=== PATIENT | male | born 1995 | race Caucasian/White ===

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

== ENCOUNTER 2017-01-17 03:11 | Emergency (ER) | payer BC ==
[~2017-01-17] VITALS: Ht 185.4 cm; Wt 99.8 kg
[~2017-01-17 03:11] MED LIST: HYDR-3812 PO
[2017-01-17] MEDS ORDERED: AZITHROMYCIN 250 MG TAB (ZITHROMAX) PO STA (03:50)
[2017-01-17] MEDS ORDERED: DEXAMETHASONE 10 MG/ML (DECADRON) 1 ML VIAL ONE (03:50)
[2017-01-17] MEDS ORDERED: DEXAMETHASONE PF 10 MG/ML (DECADRON) VIAL IM STA (03:50)
[2017-01-17] MEDS ORDERED: KETOROLAC 60 MG/2 ML VIAL IM STA (03:50)
--- NOTE | 2017-01-17 03:59 | ED EENT ---
History of Present Illness General Chief Complaint: Ear Problems Stated Complaint: RT EAR PAIN Nursing Triage Note: PT C/O RIGHT EAR PAIN SINCE MIDNIGHT. PT STATES THE PAIN IS TRAVELING DOWN TO HIS NECK. NO OTHER COMPLAINTS AT THIS TIME. Source: patient Exam Limitations: no limitations History of Present Illness Time seen by provider: 03:35 Initial Comments Here with report of right ear pain for the last several hours. States that it is radiating to the right jaw. He did use ear drops and that has not helped. He took 2 extra strength Tylenol and that did not help. Does report upper respiratory infection type symptoms for the last 5 days including nasal congestion. Denies breathing problems or other concerns. Timing/Duration: abrupt Severity: moderate Location: ear (R) Prearrival Treatment: over the counter meds, prescription meds Associated Symptoms: No cough, No ear drainage, facial pain/swelling, No fever , nasal congestion/drainage, No sore throat, No voice change Allergies and Home Medications Allergies Coded Allergies: No Known Drug Allergies (Unverified , 09/29/16) Home Medications Hydrocodone/Acetaminophen 1 Each Tablet, 2 EACH PO Q6H PRN for PAIN, #15 Ref 0 Prescribed by: ELMER KHANNA on 09/29/16 2003 Review of Systems Constitutional: see HPI, No chills, No fever Eyes: No Symptoms Reported Ears: See HPI, Pain, Denies Bloody Discharge, Denies Clear Discharge Nose: see HPI, clear discharge Mouth: no symptoms reported Throat: no symptoms reported Respiratory: No cough, No short of breath Cardiovascular: no symptoms reported Gastrointestinal: no symptoms reported Past Mklpqbn-Zffjrz-Wnsbed Hx Patient Social History Alcohol Use: Denies Use Recreational Drug Use: No Smoking Status: Never a Smoker Type Used: Smokeless Tobacco 2nd Hand Smoke Exposure: No Recent Foreign Travel: No Contact w/Someone Who Travel: No Recent Infectious Disease Expo: No Recent Hopitalizations: No Ebola Symptoms: Denies Symptoms Listed Physical Abuse: No Sexual Abuse: No Immunizations Up To Date Tetanus Booster (TDap): Less than 5yrs PED Vaccines UTD: No Seasonal Allergies Seasonal Allergies: No Surgeries History of Surgeries: No Respiratory History of Respiratory Disorde: No Cardiovascular History of Cardiac Disorders: No Neurological History of Neurological Disord: No Genitourinary History of Genitourinary Disor: No Gastrointestinal History of Gastrointestinal Di: No Musculoskeletal History of Musculoskeletal Dis: No Endocrine History of Endocrine Disorders: No HEENT History of HEENT Disorders: No Cancer History of Cancer: No Psychosocial History of Psychiatric Problem: No Suicide Risk Score: 0 Integumentary History of Skin or Integumenta: No Blood Transfusions History of Blood Disorders: No Reviewed Nursing Assessment Reviewed/Agree w Nursing PMH: Yes Physical Exam Vital Signs Vital Sign - Last 12Hours 01/17/17 03:20 Temp 98.1 Pulse 56 Resp 20 B/P (MAP) 121/90 Pulse Ox 98 O2 Delivery Room Air General Appearance: WD/WN, no apparent distress Eyes: bilateral eye normal inspection, bilateral eye PERRL, bilateral eye EOMI Ears: right ear erythema, right ear swelling, right ear TM red, left ear auricle normal, left ear canal normal, left ear TM normal Nose: other (moderate nasal congestion with clear rhinorrhea) Mouth/Throat: No tonsillar exudate, tonsillar swelling, other (pharyngeal erythema noted) Neck: full range of motion, supple, lymphadenopathy (R), No lymphadenopathy (L) Cardiovascular: regular rate, rhythm, no murmur Respiratory: lungs clear, normal breath sounds Gastrointestinal: non tender, soft Neurologic/Psychiatric: alert, oriented x 3 Skin: normal color, warm/dry Progress/Results/Core Measures Results/Orders My Orders Orders - KEVIN PARKER MD Ketorolac Injection (Toradol Injection) (01/17/17 03:50) Decadron 10 Mg Im (01/17/17 03:50) Azithromycin Tablet (Zithromax Tablet) (01/17/17 03:50) Vital Signs/I&O Vital Sign - Last 12Hours 01/17/17 01/17/17 03:20 03:20 Temp 98.1 98.1 Pulse 56 56 Resp 20 B/P (MAP) 121/90 121/90 Pulse Ox 98 O2 Delivery Room Air Room Air Progress Note : Progress Note Seen and evaluated. Toradol 60 mg IM, Decadron 10 mg IM. Azithromycin 500 mg by mouth. Discharged home with return precautions. Patient verbalize understanding instructions and agreement with plan. Departure Impression Impression: Primary Impression: Right otitis externa Qualified Codes: H60.311 - Diffuse otitis externa, right ear Disposition: 01 HOME, SELF-CARE Condition: Stable Departure-Patient Inst. Decision time for Depature: 03:57 Referrals: [facility] (PCP/Family) Primary Care Physician Patient Instructions: Outer Ear Infection (DC) Add. Discharge Instructions: All discharge instructions reviewed with patient and/or family. Voiced understanding. You may take ibuprofen 800 mg every 8 hours as needed for pain. You may take Tylenol (acetaminophen) 1000 mg every 8 hours as needed for pain. Use the Ciprodex drops 4 drops to the right ear twice daily for 7 days. Take other medications as directed. Return for worse pain, fever, vomiting, weakness, breathing problems or other concerns as needed. Scripts Azithromycin (Azithromycin) 250 Mg Tablet 250 MG PO DAILY, #4 TAB 0 Refills Prov: KEVIN PARKER MD 01/17/17 KEVIN PARKER MD Jan 17, 2017 03:59
[2017-01-17] MEDS ORDERED: AZIT250T12 PO (04:01)
== END 2017-01-17 04:02 | disposition home or self-care (01) ==
LOC: EDUNIT# 03:11 → ER 03:15
DX: H60.91 Unspecified otitis externa, right ear (principal)
CPT/HCPCS: 96372; 99284

== ENCOUNTER 2020-04-19 05:34 | Outpatient (RCR) | payer BC ==
[~2020-04-19 05:34] MED LIST changes: +ACHD5005 PO; +AZIT250T12 PO; -HYDR-3812 PO
== END 2020-04-19 11:30 | disposition home or self-care (01) ==
LOC: PREOP 05:34
PROVIDERS: ATTEND Otolaryngology Otolaryngology/Facial Plastic Surgery
DX: Z01.812 Encounter for preprocedural laboratory examination (principal); J35.01 Chronic tonsillitis; Z20.828 Contact with and (suspected) exposure to other viral communicable diseases
CPT/HCPCS: 87635

== ENCOUNTER 2020-04-21 06:57 | Day surgery (SDC) | payer BC ==
[~2020-04-21] VITALS: Ht 185.4 cm; Wt 97.7 kg
[2020-04-21] VITALS (10 sets, daily range): BP systolic 98–126; BP diastolic 26–81
[2020-04-21] MEDS ORDERED: LACTATED RINGERS 1,000 ML IV PRN (07:15)
[2020-04-21 07:41] LABS: BASOPHILS % (AUTO) 1 % (0-10); EOSINOPHILS % (AUTO) 1 % (0-10); HEMATOCRIT 43 % (40-54); HEMOGLOBIN 15.3 g/dL (13.3-17.7); LYMPHOCYTES # (AUTO) 1.7 10^3/uL (1.0-4.0); LYMPHOCYTES % (AUTO) 40 % (12-44); MEAN CORPUSCULAR HEMOGLOBIN 31 pg (25-34); MEAN CORPUSCULAR HGB CONC 36 g/dL (32-36); MEAN CORPUSCULAR VOLUME 87 fL (80-99); MEAN PLATELET VOLUME 9.3 fL (9.0-12.2); MONOCYTES # (AUTO) 0.4 10^3/uL (0.0-1.0); MONOCYTES % (AUTO) 10 % (0-12); NEUTROPHILS # (AUTO) 2.1 10^3/uL (1.8-7.8); NEUTROPHILS % (AUTO) 49 % (42-75); PLATELET COUNT 245 10^3/uL (130-400); WHITE BLOOD COUNT 4.2 10^3/uL (4.3-11.0)
[2020-04-21] MEDS ORDERED: AMPH20TA2 PO (07:48)
[2020-04-21] MEDS ORDERED: proPOfol 200 MG/20 ML (DIPRIVAN) VIAL IV ONE ×2 (08:41→09:23)
[2020-04-21] MEDS ORDERED: LIDOCAINE PF 2% 5 ML (XYLOCAINE) VIAL ONE (08:41)
[2020-04-21] MEDS ORDERED: fentaNYL INJECTION 100 MCG/2 ML AMP ONE (08:41)
[2020-04-21] MEDS ORDERED: MIDAZOLAM 2 MG/2 ML (VERSED) VIAL ONE (08:42)
[2020-04-21] MEDS ORDERED: SEVOFLURANE (ULTANE) 15 ML INHAL SOLN ONE (08:43)
[2020-04-21] MEDS ORDERED: ONDANSETRON 4 MG/2 ML (SDV) Z0FRAN ONE (08:43)
[2020-04-21] MEDS ORDERED: ROCURONIUM 10 MG/ML 5 ML SYRINGE IV ONE (08:43)
--- NOTE | 2020-04-21 08:57 | Progress Note-Pre Operative ---
Pre-Operative Progress Note H&P Reviewed The H&P was reviewed, patient examined and no changes noted. Date Seen by Provider: Apr 21, 2020 Time Seen by Provider: 08:30 Date H&P Reviewed: Apr 21, 2020 Time H&P Reviewed: 08:30 Pre-Operative Diagnosis: Chronic Tonsillitis PRANEETH VALADEZ MD Apr 21, 2020 08:57
--- NOTE | 2020-04-21 08:58 | Progress Note-Post Operative ---
Post-Operative Progess Note Surgeon (s)/Guncotton Packer (s) Surgeon PRANEETH VALADEZ MD [place] Packer n/a Pre-Operative Diagnosis Chronic Tonsillitis Post-Operative Diagnosis same Post-Op Procedure Note Date of Procedure: Apr 21, 2020 Name of Procedure Performed: Tonsillectomy Description & Findings Description and Findings: n/a Anesthesia Type get Estimated Blood Loss minimal Packing none. Specimen(s) collected/removed tonsils PRANEETH VALADEZ MD Apr 21, 2020 08:58
[2020-04-21] MEDS ORDERED: NS IV 1000 ML 1,000 ML IV SCH (09:00)
[2020-04-21] MEDS ORDERED: HYDROcodone/APAP 7.5MG-325 MG/15 ML (LORTAB) UDC PO PRN (09:00)
[2020-04-21] MEDS ORDERED: APAP 325 MG/10.15 ML LIQ (TYLENOL) UDC PO PRN (09:00)
[2020-04-21] MEDS ORDERED: MEPERIDINE (DEMEROL) INJ 50 MG/ML IVP ONE (09:15)
[2020-04-21] MEDS ORDERED: fentaNYL INJECTION 100 MCG/2 ML AMP IVP ONE (09:15)
[2020-04-21] MEDS ORDERED: morphine INJ 10 MG/ML 1ML (SYR OR VIAL) IVP ONE (09:15)
[2020-04-21] MEDS ORDERED: ONDANSETRON 4 MG/2 ML (SDV) Z0FRAN IVP PRN (09:15)
[2020-04-21] MEDS ORDERED: GLYCOPYRROLATE 0.2 MG/ML (ROBINUL) 2 ML VIAL ONE (09:23)
[2020-04-21] MEDS ORDERED: NEOSTIGMINE 3 MG/3 ML VIAL ONE (09:23)
[2020-04-21] MEDS ORDERED: HYDROcodone/APAP 7.5MG-325 MG/15 ML (LORTAB) UDC ONE (10:41)
[2020-04-21] MEDS ORDERED: AMOX250S5 PO (11:24)
[2020-04-21] MEDS ORDERED: DEXAINTSOL PO (11:24)
[2020-04-21] MEDS ORDERED: TETRACAINESUCKERS MT (11:24)
[2020-04-21] MEDS ORDERED: HYDR15SO8 PO (11:24)
--- NOTE | 2020-04-21 11:25 | Anesthesia-General Post-Op ---
General Patient Condition Mental Status/LOC: Same as Preop Cardiovascular: Satisfactory Nausea/Vomiting: Absent Respiratory: Satisfactory Pain: Controlled Complications: Absent Post Op Complications Complications None Follow Up Care/Instructions Patient Instructions None needed. Anesthesia/Patient Condition Patient Condition Patient is doing well, no complaints, stable vital signs, no apparent adverse anesthesia problems. No complications reported per nursing. CAYETANO AMEZQUITA CRNA Apr 21, 2020 11:25
== END 2020-04-21 12:20 | disposition home or self-care (01) ==
LOC: SDC 06:57
PROVIDERS: ATTEND Otolaryngology Otolaryngology/Facial Plastic Surgery
DX: J35.01 Chronic tonsillitis (principal); J98.8 Other specified respiratory disorders; F90.9 Attention-deficit hyperactivity disorder, unspecified type
CPT/HCPCS: 36415; 85025; 87081